=== PATIENT | male | born 1970 | race Caucasian/White ===

== ENCOUNTER 2024-02-18 07:49 | Emergency (ER) | payer BC | END 2024-02-18 09:22 | disposition home or self-care (01) | LOC: MW.ED 07:49 | DX: S89.92XA Unspecified injury of left lower leg, initial encounter (principal); M25.462 Effusion, left knee; X50.1XXA Overexertion from prolonged static or awkward postures, initial encounter; Y93.44 Activity, trampolining | CPT/HCPCS: 73562-26-LT; 73562-LT; 99283 ==